=== PATIENT | female | born 1970 | race Caucasian/White ===

== ENCOUNTER → 2016-07-20 | Outpatient (CLI) | payer BC ==
--- NOTE | 2016-07-20 13:09 | US ---
Transabdominal and Transvaginal Pelvic Ultrasound History: 45-year-old with heavy bleeding during cycle for 4 months. Comparison: None available. Findings: Transabdominal: The uterus is retroverted, measuring 11.2 x 6.8 x 5.6 cm. The bladder is normal. Transvaginal: A subserosal posterior fundal 1.5 x 1.4 x 1.1 cm fibroid is present. A subtle echogenic 2.3 x 1.9 x 1.6 cm intramural structure in the mid uterine body also likely represents a fibroid. Th e endometrium is homogeneous and measures 10 mm. The left ovary measures 2.4 x 3.6 x 1.3 cm. The righ t ovary measures 2.4 x 1.5 x 3.7 cm. No adnexal masses are identified. Normal arterial blood flow is documented to both ovaries by Doppler ultrasound. Adnexal varices are noted, left greater than right . There is trace free fluid. Impression: 1. No visible etiology for the patient's symptoms. 2. Uterine fibroids. 3. Adnexal varices, which can be seen in asymptomatic patients as well as patients with pelvic conges tion syndrome.
== END ==
LOC: CIMAGING 10:46
PROVIDERS: ATTEND Obstetrics & Gynecology
DX: D25.9 Leiomyoma of uterus, unspecified (principal); I86.2 Pelvic varices; N92.0 Excessive and frequent menstruation with regular cycle
CPT/HCPCS: 76856-PO